=== PATIENT | male | born 1955 | race Caucasian/White ===

== ENCOUNTER 2018-06-29 19:18 | Observation (INO) ==
[2018-06-29 19:49] LABS: BASO# 0.05 X1000 (0.0-0.2); BASO% 0.5 % (0.0-0.8); EOS# 0.34 X1000 (0.0-0.7); EOS% 3.1 % (0.0-10.0); HEMATOCRIT 48.2 % (42.0-52.0); HEMOGLOBIN 16.5 g/dL (14.0-18.0); IMM GRAN# 0.05 X1000 (0.0-0.04); IMM GRAN% 0.5 % (0.0-0.5); LYMPH# 2.39 X1000 (1.2-3.4); LYMPH% 22.1 % (20.5-51.1); MCH 31.3 PG (27-31); MCHC 34.2 g/dL (33-37); MCV 91.3 FL (81-99); MONO# 0.87 X1000 (0.11-0.59); MPV 10.6 FL (7.4-10.4); NEUT# 7.12 X1000 (1.4-6.5); NEUT% 65.8 % (42.2-75.2); PLT 241 X1000 (130-400); RBC 5.28 XMIL (4.7-6.1); RDW 12.9 % (11.5-14.5); WBC 10.82 X1000 (4.8-10.8)
[2018-06-29 19:58] LABS: INR 0.92; PROTIME 13.1 Seconds (11.0-16.0)
[2018-06-29 19:59] LABS: PTT 30.1 Seconds (22.3-41.8)
[2018-06-29 20:14] LABS: AGAP 12; ALB/GLOB RATIO 1.5; ALBUMIN 4.3 g/dL (3.5-5.0); ALKALINE PHOSPHATASE 66 U/L (32-122); BUN 19 mg/dL (8-22); CALCIUM 8.8 mg/dL (8.8-10.2); CHLORIDE 106 mmol/L (98-107); COSMO 293; CREATININE 0.9 mg/dL (0.7-1.2); ESTIMATED GFR > 60; GLUCOSE 161 mg/dL (70-104); GOT 38 U/L (10-34); GPT 38 U/L (10-44); POTASSIUM 4.1 mmol/L (3.5-5.1); SODIUM 144 mmol/L (136-145); TCO2 26 mmol/L (25-35); TOTAL PROTEIN 7.2 g/dL (6.3-8.3)
[2018-06-29 20:23] LABS: CK PROFILE 430 U/L (24-204)
[2018-06-29 20:39] LABS: CK INDEX 2.7 (0.0-2.5); CK-MB 11.45 ng/mL (0.0-5.0)
--- NOTE | 2018-06-29 20:49 | Diag Imaging Result Doc PS360 ---
EXAM: CHEST-2 VIEWS HISTORY: CP TECHNIQUE: Chest two views COMPARISON: 03/31/2017 FINDINGS: The lungs are well expanded. The heart is not enlarged. The vessels are not distended. There are no infiltrates. No pleural effusions. IMPRESSION: No acute abnormality. Electronically signed by Mehran Beyer 06/29/2018 8:46 PM
--- NOTE | 2018-06-29 20:52 | PROVIDER DOCUMENTATION ---
HPI-Chest Pain - General Chief Complaint: Chest Pain Stated Complaint: CHEST PAIN (IN ONE YEAR AGO) Time Seen by Provider: 06/29/18 20:45 Allergies/Adverse Reactions: Patient Allergies Allergy/AdvReac Type Severity Reaction Status Date / Time No Known Allergies Allergy Verified 06/29/18 20:53 Home Medications: Home Medication List Medication Instructions Recorded Confirmed Last Taken Type Aspirin [Adult Aspirin] 06/29/18 06/29/18 History Atorvastatin Calcium [Lipitor] 06/29/18 06/29/18 History Metoprolol [Lopressor] 06/29/18 06/25/18 History - History of Present Illness-CP Nature of Presenting Problem: 63 YOM PRESENTS WITH C/O CHEST TIGHTNESS W/O ASSOCIATED SYMPTOMS. HE HAD A PREVIOUS IN 14 MONTHS AGO Location: reports: substernal Chest Pain Radiation: reports: no radiation Quality of Pain: reports: pressure Severity in ED: mild Onset/Duration: just prior to arrival Timing: gone now Context/Activities at Onset: reports: none Modifying Factors: improves with: nothing Associated Symptoms: reports: denies symptoms Nitro Today/Relief: no nitro taken today Aspirin Treatment Today: 81 mg x 4 Prior Chest Pain/Cardiac Workup: reports: heart attack. denies: no prior chest pain Similar Symptoms Previously?: Yes Recently Seen Here or By Another Healthcare Provider: No Review of Systems - Adult - REVIEW OF SYSTEMS - ADULT Constitutional: denies: no symptoms reported, see HPI, chills, fever, fatique, night sweats, weight gain, weight loss, other Eyes: reports: no symptoms reported. denies: see HPI, discharge, dry eyes, decr eased vision, blurred vision, double vision, eye pain, redness, other Ears, Nose, Mouth & Throat: reports: no symptoms reported. denies: see HPI, ear discharge, ear pain, hearing loss, tinnitus, epistaxis, sinus problem, nose pain, loose teeth, mouth/dental pain, mouth swelling, hoarseness, throat pain, throat swelling, other Cardiovascular: reports: chest pain. denies: no symptoms reported, see HPI, edema, heart murmur, irregular heart rate, orthopnea, palpitations, poor circulation, PND, syncope, other Respiratory: reports: no symptoms reported. denies: see HPI, chronic cough, cough, dyspnea on exertion, excessive sputum production, hemoptysis, pleurisy, shortness of breath, wheezing, other Gastrointestinal: reports: no symptoms reported. denies: see HPI, abdominal pain, hematemesis, constipation, diarrhea, difficulty swallowing, frequent heartburn, nausea, poor appetite, rectal bleeding, vomiting, other Genitourinary: reports: no symptoms reported. denies: see HPI, dysuria, discharge, frequency, flank pain, frequent UTI's, hematuria, hesitency, incont inence, urinary retention, urgency, other Musculoskeletal: reports: no symptoms reported. denies: see HPI, bone pain, back pain, frequent leg cramps, joint pain, joint swelling, muscle aches, muscle weakness, neck pain, other Integumentary: reports: no symptoms reported. denies: see HPI, hives, hair loss, itching, mole changes, nail changes, rash, skin sores/ulcer, skin thickening, other Neurological: reports: no symptoms reported. denies: see HPI, ataxia, dizziness/vertigo, headache/migraines, loss of balance, numbness, paresthesia, seizure, slurred speech, syncope, tremors, other Psychiatric: reports: no symptoms reported. denies: see HPI, anxiety, anti- depressant use, alcohol/drug dependence, depression, emotional problems, insomnia, panic attacks, suicidal thoughts, other Endocrine: reports: no symptoms reported. denies: see HPI, change in skin pigment, excessive sweating, goiter, cold intolerance, heat intolerance, increased hunger, increased thirst, polyuria, other Hematologic/Lymphatic: reports: no symptoms reported. denies: see HPI, blood clots, easy bruising, low blood count, lymphedema, prolonged bleeding, swollen lymph nodes, transfusions, other Allergic/Immunologic: reports: no symptoms reported. denies: see HPI, allergic reactions, allergic rhinitis, asthma, eczema, food allergy, frequent infections, hay fever, hives, positive PPD, urticaria, other Past History - Adult - PAST MEDICAL HISTORY-ADULT Review of Records: reports: Nursing Assessment Review, Social history reviewed & non-contributory. Major Childhood Illnesses: reports: denies history Cardiovascular: reports: IN Physical Exam-General - PHYSICAL EXAM-ADULT Initial Vital Signs Reviewed: Yes - CONSTITUTIONAL General Appearance: appears well, alert - EYES Eyes: PERRL/EOMI, pink conjunctivae - HEAD, EARS, NOSE, MOUTH & THROAT HENMT: normocephalic/atraumatic, moist mucous membranes, normal ENT inspection - NECK Neck: non-tender, full range of motion - RESPIRATORY Respiratory: chest non-tender, lungs clear, normal breath sounds, no respiratory distress - CARDIOVASCULAR Cardiovascular: normal peripheral pulses, regular rate, rhythm - GASTROINTESTINAL (ABDOMEN) Abdominal Exam: normal bowel sounds, non tender - LYMPHATIC Lymphatic: no adenopathy - MUSCULOSKELETAL Back Exam: normal inspection Extremity: normal range of motion, non-tender - SKIN Integumentary: normal color, normal turgor - NEUROLOGIC Neurologic: grossly normal - PSYCHIATRIC Psych/Mental Status: normal mood/affect, oriented x 3 - HEART Score HEART Score: History: Moderately Suspicious HEART Score: ECG: Normal HEART Score: Age: 45-65 Years HEART Score: Risk Factors for Atherosclerotic Disease: 1 or 2 Risk Factors HEART Score: Troponin: 1-3x Normal Limit Total HEART Score:: 4 Progress - PLAN OF CARE/RESULTS Progress/Plan/Lab Results: Vital Signs - 8 hr 06/29/18 19:25 06/29/18 20:42 06/29/18 20:43 Temperature 98.5 F Pulse Rate 74 66 69 Respiratory Rate 18 28 H 22 Blood Pressure 148/95 185/105 185/105 O2 Sat by Pulse Oximetry 97 97 97 06/29/18 21:00 06/29/18 21:03 06/29/18 21:10 Temperature Pulse Rate 66 64 70 Respiratory Rate 21 20 22 Blood Pressure 159/86 O2 Sat by Pulse Oximetry 95 95 96 06/29/18 21:20 06/29/18 21:30 06/29/18 21:32 Temperature Pulse Rate 60 65 61 Respiratory Rate 21 17 19 Blood Pressure 173/93 O2 Sat by Pulse Oximetry 95 97 98 06/29/18 21:40 06/29/18 21:50 06/29/18 22:00 Temperature Pulse Rate 66 61 63 Respiratory Rate 21 20 20 Blood Pressure O2 Sat by Pulse Oximetry 96 96 97 06/29/18 22:03 06/29/18 22:10 06/29/18 22:20 Temperature Pulse Rate 58 L 58 L 60 Respiratory Rate 25 H 20 20 Blood Pressure 152/85 O2 Sat by Pulse Oximetry 96 94 L 95 06/29/18 22:30 06/29/18 22:33 06/29/18 22:40 Temperature Pulse Rate 60 56 L 59 L Respiratory Rate 18 18 19 Blood Pressure 157/90 O2 Sat by Pulse Oximetry 97 96 96 Laboratory Results - last 24 hr 06/29/18 06/29/18 06/29/18 19:30 19:30 19:30 WBC 10.82 H RBC 5.28 Hgb 16.5 Hct 48.2 MCV 91.3 MCH 31.3 H MCHC 34.2 RDW Std Deviation 12.9 Plt Count 241 MPV 10.6 H Immature Gran % (Auto) 0.5 Neut % (Auto) 65.8 Lymph % (Auto) 22.1 [place] % (Auto) 8.0 Eos % (Auto) 3.1 Baso % (Auto) 0.5 Immature Gran # (Auto) 0.05 H Neut # (Auto) 7.12 H Lymph # (Auto) 2.39 [place] # (Auto) 0.87 H Eos # (Auto) 0.34 Baso # (Auto) 0.05 PT INR PTT (Actin FS) Sodium 144 Potassium 4.1 Chloride 106 Carbon Dioxide 26 Anion Gap 12 BUN 19 Creatinine 0.9 Estimated GFR/1.73 m2 > 60 BUN/Creatinine Ratio 21 Glucose 161 H Calculated Osmolality 293 Calcium 8.8 Total Bilirubin 0.40 AST 38 H ALT 38 Alkaline Phosphatase 66 Creatine Kinase 430 H Creatine Kinase Index 2.7 H CK-MB (CK-2) 11.45 H Troponin T Sbt-D-Kivvouxjpvr Pept 86 Total Protein 7.2 Albumin 4.3 Globulin 2.9 Albumin/Globulin Ratio 1.5 06/29/18 06/29/18 06/29/18 19:30 19:30 21:45 WBC RBC Hgb Hct MCV MCH MCHC RDW Std Deviation Plt Count MPV Immature Gran % (Auto) Neut % (Auto) Lymph % (Auto) [place] % (Auto) Eos % (Auto) Baso % (Auto) Immature Gran # (Auto) Neut # (Auto) Lymph # (Auto) [place] # (Auto) Eos # (Auto) Baso # (Auto) PT 13.1 INR 0.92 PTT (Actin FS) 30.1 Sodium Potassium Chloride Carbon Dioxide Anion Gap BUN Creatinine Estimated GFR/1.73 m2 BUN/Creatinine Ratio Glucose Calculated Osmolality Calcium Total Bilirubin AST ALT Alkaline Phosphatase Creatine Kinase Creatine Kinase Index CK-MB (CK-2) Troponin T 0.015 0.053 D Kac-A-Ukoujkirvsd Pept Total Protein Albumin Globulin Albumin/Globulin Ratio Orders Category Date Time Status Cardiac Monitoring DIRECTED Care 06/29/18 19:36 Active Oxygen Therapy- ED Nursing DIRECTED Care 06/29/18 19:36 Active Saline Loc NOW Care 06/29/18 19:36 Active CHEST-2 VIEWS [RAD] Stat Exams 06/29/18 19:36 Completed CBC WITH ELECTRONIC DIFF [HEME] Stat Lab 06/29/18 19:30 Completed CK PROFILE [SP CHEM] Stat Lab 06/29/18 19:30 Completed COMPREHENSIVE METABOLIC PANEL [CHEM] Stat Lab 06/29/18 19:30 Completed PRO B-NATRIURETIC PEPTIDE Stat Lab 06/29/18 19:30 Completed PROTIME WITH INR [COAG] Stat Lab 06/29/18 19:30 Completed PTT [COAG] Stat Lab 06/29/18 19:30 Completed TROPONIN T Stat Lab 06/29/18 19:30 Completed TROPONIN T Stat Lab 06/29/18 21:45 Completed CP/SOB/Palp >45 yrs of Age Stat Oth 06/29/18 19:35 Ordered EKG [EKG] Stat Ther 06/29/18 19:36 Ordered EKG [EKG] Stat Ther 06/29/18 21:24 Ordered Transfer/Admit Order [TRANSFER] Routine Transfer 06/29/18 23:11 Ordered Result Diagrams: 06/29/18 19:30 06/29/18 19:30 - EKG 1 Time of EKG reading by physician:: 19:26 EKG Read and Signed by:: Ravi Bran EKG Interpretation (*Must complete 3 of following elements*): Normal Rate: 77 Rhythm: NDR [place]: normal QRS: normal CT Interval: normal ST Wave: normal 2 Time of EKG reading by physician:: 21:40 EKG Read and Signed by:: Ravi Bran EKG Interpretation (*Must complete 3 of following elements*): Normal Rate: 63 Rhythm: NSR [place]: normal QRS: normal ST Wave: normal Prior EKG Comparison: unchanged from prior Departure - Departure Date of Disposition Decision: 06/29/18 Time of Disposition Decision: 22:38 DIAGNOSIS: NSTEMI (non-ST elevated myocardial infarction) Disposition: ADMITTED INPATIENT 09 Certified Medical Emergency: Emergent Condition: Stable Referrals and Follow-Ups: Jamir Polanco [Primary Care Provider] - - Critical Care Note This patient required my direct & personal management of CC.: No Attestation - Physician/ FIORDALIZA Attestation Patient care was provided by Advanced Practice Provider:: Yes Advanced Practice Provider:: Tatum Timmons Advanced Practice Provider documentation review:: The Mid-level provider doc umentation, treatment plan and medical decision making was reviewed by the physician who agrees with all treatment and medical decision making by the MLP. The physician spent face to face time with patient:: No Advanced Practice Provider documentation review:: Supervising physician onsite and consulted in the evaluation and care of this patient. The physician did not have a face to face encounter with the patient.
[2018-06-30] MEDS ORDERED: ZOFRAN IV PRN (01:24)
[2018-06-30] MEDS ORDERED: TYLENOL PO PRN (01:32)
[2018-06-30 04:15] LABS: BASO# 0.06 X1000 (0.0-0.2); BASO% 0.8 % (0.0-0.8); EOS# 0.49 X1000 (0.0-0.7); EOS% 6.8 % (0.0-10.0); HEMATOCRIT 44.8 % (42.0-52.0); HEMOGLOBIN 15.5 g/dL (14.0-18.0); IMM GRAN# 0.06 X1000 (0.0-0.04); IMM GRAN% 0.8 % (0.0-0.5); LYMPH# 2.25 X1000 (1.2-3.4); LYMPH% 31.3 % (20.5-51.1); MCH 32.1 PG (27-31); MCHC 34.6 g/dL (33-37); MCV 92.8 FL (81-99); MONO# 0.93 X1000 (0.11-0.59); MONO% 12.9 % (1.7-9.3); MPV 10.8 FL (7.4-10.4); NEUT% 47.4 % (42.2-75.2); PLT 193 X1000 (130-400); RBC 4.83 XMIL (4.7-6.1); RDW 13.3 % (11.5-14.5); WBC 7.19 X1000 (4.8-10.8)
--- NOTE | 2018-06-30 04:24 | HISTORY AND PHYSICAL ---
PRIMARY CARE PROVIDER: Patient's does not have a primary care provider. PULPIT OPERATOR: Dr. Jamir Polanco at the [facility] [place]. CHIEF COMPLAINT: Chest pain. HISTORY OF PRESENT ILLNESS: Mr. Cross is a 63-year-old male with a past medical history most notable for coronary artery disease with a myocardial infarction in March of 2017 for which he did have 2 stents placed. He does have a history of hyperlipidemia as well. The patient reports that at approximately 6:30 in the evening on 06/29/2018 right after eating supper he did have start having chest pain across the top of his chest. This was in his left and right chest, but other than this it was nonradiating. He reports that the pain was 7/10 and was crampy and tight in nature. He did state that it was intermittent. It would last a couple minutes to several minutes and then stop and then come back. The patient states this pain started while he was sitting on the couch. The patient states that he ate dinner, was sitting on the couch, had fell asleep and woke up and started having this chest pain. He denies any dizziness, near syncope, shortness of breath, nausea, vomiting or diaphoresis. The patient states it occasionally almost did feel like he had gas and he needed to burp, but denied it feeling like heartburn. He did state this pain was similar to the pain that he had when he had his myocardial infarction. He also reports that for a few months now that he has been having occasional pain in his right lower chest along the rib cage border that he states is difficult to describe but did say it felt like a dull ache at times. He reports that it is intermittent. It usually comes on when he is at rest. Other than this, the patient denies any other symptoms. He denies any recent illness or not feeling well. He denies any headache, abdominal pain, diarrhea. He denies any hematochezia or melena. He denies any dysuria. He denies any pain, numbness, tingling or swelling in extremities. The patient did have a recent tooth extraction on his left upper side though he states that since that time he has not had any pain, swelling, drainage or abscess noted to this area. He denies any fever, body aches, or chills. Upon evaluation in the ER, the patient's initial cardiac enzymes, his CK enzymes were elevated. CK was 430, CK index was 2.7, CK-MB was 11.45. His troponin initially was 0.015. On a repeat 2 hour check had increased to 0.053 though the patient at this time since his arrival to the ER has denied any further episodes of chest pain. His EKG did not show any acute changes. It showed normal sinus rhythm at a rate of 63. The patient did take four 81 mg aspirins prior to arrival. Chest x-ray showed no acute abnormality though given the patient's history and that he did have an increase in his troponin level he will be admitted for further treatment and evaluation for his chest pain to rule out acute coronary syndrome. REVIEW OF SYSTEMS: A 14 point review of systems was conducted with the patient and all were negative except for pertinent positives mentioned in above HPI. PAST MEDICAL HISTORY: 1. Coronary artery disease, status post myocardial infarction in March of 2017 with 2 stents being placed. 2. Hyperlipidemia. 3. Nicotine dependence. PAST SURGICAL HISTORY: 1. Cardiac stent placement x2. 2. Low back surgery in 2004. 3. Recent tooth extraction last week. SOCIAL HISTORY: The patient states that he has smoked now for total of 7 years. He smokes about half a pack to 1 pack per day. The patient reports that he did quit approximately 4 to 5 months prior to having his heart attack in 2018 though unfortunately a few months ago he did start back smoking. There is no known alcohol or illicit drug use. The patient is employed by [employer]. He does maintenance plumbing work. He reports that his job can be strenuous at times depending on the task that they are working on. FAMILY HISTORY: Positive for his mother having a history of hyperlipidemia and hypertension. She is still living. His father did pass away at age 88 of an unknown cause though he did have a history of diabetes mellitus. ALLERGIES: Patient has no known allergies. HOME MEDICATIONS: 1. Aspirin 81 mg p.o. daily. 2. Lipitor 80 mg p.o. at bedtime. 3. Famotidine 20 mg p.o. p.r.n. for indigestion and heartburn. 4. Metoprolol succinate extended release 25 mg p.o. daily. DIAGNOSTIC DATA: White blood cell count is 10.82, hemoglobin 16.5, hematocrit 48.2, platelet count is 241,000. PT 13.1, INR 0.92, PTT is 30.1. Sodium 144, potassium 4.1, chloride 106, serum bicarbonate was 26, BUN 19, creatinine 0.9, glucose 161, calcium 8.8. Liver function tests were within normal limits except for AST was slightly elevated at 38. CK 430, CK index 2.7, CK MB 11.45. Troponin initial draw was 0.015 with a repeat of 0.053. ProBNP was 86. EKG showed normal sinus rhythm at a rate of 63 with a QTc of 403. Chest x-ray showed no acute abnormality. PHYSICAL EXAMINATION: VITAL SIGNS: Temperature 98.3 degrees, heart rate 61, respirations 14, blood pressure 149/84, oxygen saturation is 99% on room air. GENERAL: Mr. Cross is a very pleasant 63-year-old male who is resting in the inpatient bed. He was in no acute distress. He was awake, alert, and able to answer questions appropriately. HEENT: Head is atraumatic, normocephalic. Pupils are equal, round, reactive to light, were 3 mm bilaterally and brisk. Oral mucosa is moist. Oropharynx was clear. NECK: Supple. Trachea midline. CARDIOVASCULAR: Patient has S1-S2 present. No murmurs, gallops, rubs appreciated with a regular rate and rhythm. PULMONARY: Patient has symmetrical chest expansion bilaterally. Lung sounds are clear to auscultation in bilateral full rosas. ABDOMEN: Soft. Nontender. Does not appear to be distended though the patient does have a protuberant abdomen noted. There was no CVA tenderness noted either. There was a negative Ken's sign. Bowel sounds are present in all 4 quadrants, were normoactive. EXTREMITIES: No cyanosis or edema noted. Pulse, motor, and sensory were intact in all extremities. Radial pulses and pedal pulses were 2+ bilaterally. INTEGUMENTARY: The patient's skin is pink, warm, and dry. NEUROLOGICAL: Patient is alert and oriented to person, place, time, and situation. He is able to move all extremities. There do not appear to be any focal neurological deficits noted. ASSESSMENT AND PLAN: 1. Chest pain, rule out acute coronary syndrome. For further evaluation, we will continue with the series of cardiac enzymes. We have placed orders for a lipid profile in the morning as well. He will have a repeat EKG and echocardiogram. Until he is evaluated by Cardiology, we will keep him NPO. He will be placed in [facility] for close monitoring. He will have continuous cardiac telemetry and frequent vital signs. He did receive an aspirin as mentioned prior to arrival. We will continue with 325 mg aspirin daily at this time. We will continue his regularly prescribed metoprolol and Lipitor. We will continue to follow. 2. Coronary artery disease, status post myocardial infarction with stent placement x2 in March of 2017. We will continue with treatment as mentioned above under #1. 3. Hyperlipidemia. We will continue his Lipitor. 4. Nicotine dependence. We did auto club travel counselor the patient on the importance of smoking cessation given his cardiac history for several minutes. We will continue to auto club travel counselor him on this throughout his admission and upon discharge. He declined nicotine patch at this time. 5. Deep venous thrombosis prophylaxis will be provided with Lovenox 40 mg subcutaneous daily. He has been placed in CIC with telemetry. We will do strict intake and output, incentive spirometry. We will repeat a CBC, CMP, magnesium in the morning. We have also placed an order for a hemoglobin A1c. His glucose was elevated at 161. Further orders and recommendations pending hospital course, diagnostic studies, and physician evaluation. Dictated by TAYLOR Dong for Rogelio Manzanares MD cc: Rogelio Manzanares MD
[2018-06-30 04:51] LABS: AGAP 10; BUN 19 mg/dL (8-22); CALCIUM 8.6 mg/dL (8.8-10.2); CHLORIDE 110 mmol/L (98-107); COSMO 286; CREATININE 0.9 mg/dL (0.7-1.2); ESTIMATED GFR > 60; GLUCOSE 101 mg/dL (70-104); MAGNESIUM 1.9 mg/dL (1.5-2.7); POTASSIUM 4.6 mmol/L (3.5-5.1); SODIUM 142 mmol/L (136-145); TCO2 22 mmol/L (25-35)
[2018-06-30 05:13] LABS: CK INDEX 3.3 (0.0-2.5); CK-MB 11.38 ng/mL (0.0-5.0)
[2018-06-30 05:53] LABS: HEMOGLOBIN A1C 5.6 % (4.8-6.0)
[2018-06-30] MEDS ORDERED: LOVENOX SUBQ SCH (06:00)
[2018-06-30] MEDS: ASPIRIN PO SCH (08:21)
[2018-06-30] MEDS ORDERED: TOPROL XL PO SCH (09:00)
[2018-06-30] MEDS ORDERED: LOPRESSOR PO SCH (09:00)
[2018-06-30 12:05] LABS: CK INDEX 3.1 (0.0-2.5); CK-MB 9.91 ng/mL (0.0-5.0)
--- NOTE | 2018-06-30 12:32 | CARDIOLOGY CONSULTATION ---
DATE: 06/30/2018 DIAGNOSIS: Non Q-wave myocardial infarction. SUBJECTIVE: Mr. Cross is a 63-year-old gentleman with known history of coronary artery disease, stent placement to the left anterior descending artery at [facility], who comes with complaints of having chest discomfort, which he says was cramping in sensation, 7/10, tightness which was intermittent. In the last few weeks, he has been having recurrent episodes of chest pain with increasing fatigue. As far as history is concerned, he says he has been having, for at least a few months, chest pain, more so on the right retrosternal region radiating to the back. This has been going on intermittently with exertion. There are no palpitations. There is no dizziness or syncope. He has noticed increasing fatigue as well. There are no palpitations. REVIEW OF SYSTEMS: A 14-point review of systems was done. GI: There is no history of nausea, vomiting, diarrhea. There is no history of hematemesis or melena. Central Nervous System: No focal weakness to suggest a CVA or TIA. Genitourinary: There is no dysuria or hematuria. Respiratory: There is no history of cough, expectoration, hemoptysis. There is no history of fevers or chills. PAST MEDICAL HISTORY: 1. Coronary artery disease, PTCA and drug-eluting stent to the left anterior descending artery and diagonal at the bifurcation, treated with balloon angioplasty. 2. Anterior myocardial infarction. This was on 03/31/2017. 3. Nicotine dependence. The patient started smoking again, about 1 pack of cigarettes a day for the last 4 months. 4. Hyperlipidemia. 5. Back surgery in 2004. SOCIAL HISTORY: The patient has started smoking again. He quit 4 months prior and since his heart attack. There is no history of alcohol or illicit drug abuse. FAMILY HISTORY: Positive for mother having a history of hyperlipidemia, hypertension. ALLERGIES: The patient is not known to be allergic to any medications. HOME MEDICATIONS: Include: 1. Aspirin 81 mg a day. 2. Lipitor 80. 3. Famotidine. 4. Metoprolol 25. PHYSICAL EXAMINATION: Vital Signs: Blood pressure 140/80. Cardiovascular: Normal jugular venous pressure. There is no thyromegaly. No carotid bruit. First and second heart sounds were heard. There is a faint systolic murmur. Respiratory: Normal air entry. There is no crepitations or rhonchi. Abdomen: Soft, nontender. There was no guarding or rigidity. Bowel sounds were heard. Central Nervous System: Alert and was moving all 4 extremities. Extremities: No pedal edema. HEENT: Atraumatic, normocephalic. Pupils were equal and reacting to light. LABORATORY AND DIAGNOSTIC DATA: WBC 7.1, hemoglobin 15.5, hematocrit 44, platelet count of 193,000. Chemistry: Sodium 142, potassium 4.6, BUN 19, creatinine 0.9. HDL 33, LDL cholesterol 75, triglycerides 64. CK-MB was abnormal at 11.45 with CK of 430. Subsequent CK 340, CK-MB 11.38. Troponins were negative. Electrocardiogram revealed normal sinus rhythm, early repolarization pattern noted in the inferior leads, with Q-wave in lead 3. ASSESSMENT AND PLAN: Mr. Leighton Cross is a 63-year-old gentleman with history of myocardial infarction, percutaneous transluminal coronary angioplasty, drug-eluting stent to the left anterior descending artery, and angioplasty to the diagonal on 03/31/2017, history of smoking, gastroesophageal reflux disease. He comes in with complaints of having recurrent chest discomfort. The patient's troponin was negative. Abnormal CK-MB. The patient has non Q-wave myocardial infarction. Given this, I have recommended that he undergo left heart catheterization. Risks, benefits, and alternatives were explained. 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 The patient would like to have the procedure done at [facility]. We will transfer him in the morning. Will get an echocardiogram to assess cardiac and valvular function. I will add Lovenox to his medical regimen, in addition to nitroglycerin paste, and increase his beta-blockers to 25 mg twice daily. We will continue with his aspirin and atorvastatin. Thank you for the consult. cc: Maxx Tolentino MD
[2018-06-30] MEDS ORDERED: LOVENOX SUBQ ONE (13:40)
[2018-06-30] MEDS: NITROGLYCERIN TOP SCH ×2 (14:18→19:46)
--- NOTE | 2018-06-30 14:41 | PROGRESS NOTE ---
DATE: 06/30/2018 INTERVAL HISTORY: Mr. Cross was admitted overnight for chest pain affecting bilateral upper chest of about 10 hours duration. He has had these episodes multiple times in the last week. He was admitted for further management considering his prior history of coronary artery disease and CO in 2018. SUBJECTIVE: At the time of my evaluation, the patient states that he has been chest pain-free since 6 a.m. today. He denies any shortness of breath, palpitation or her dizziness. The patient's is at bedside. He states that he just quit smoking yesterday. I encouraged him to quit smoking. VITAL SIGNS: Temperature 97.5, pulse 65, respiratory rate 17, blood pressure 150/87, saturating 98% on room air. PHYSICAL EXAMINATION: General: He does not appear in any acute distress. HEENT: Oral cavity is moist. Lungs: Air entry bilaterally equal. No wheeze, rhonchi, crackles. Cardiovascular: S1, S2 normal. No murmur or gallop. Abdomen: Soft, nontender. No lower extremity edema. He does not have any jugular venous distention. LABORATORY: No leukocytosis at the moment. Normal hemoglobin, hematocrit and platelet count. Normal kidney function. He does have a flat trend of creatine kinase which was elevated to begin with and now is going down. His CK-MB was also elevated to 11.45 and it is going down to 9.9 now. His troponin continues to show rising trend from 0.01 on admission to 0.08 at the moment. Microbiology no data. IMAGING: His EKG had detected normal sinus rhythm, though he did have Q-waves in lead 3. ASSESSMENT AND PLAN: 1. Chest pain with prior history of coronary artery disease, requiring stent in March 2017. His current chest pain episodes are concerning in the setting of rising troponin levels and likely in the setting of suspected non ST elevation myocardial infarction. He has been started on therapeutic dose of enoxaparin. I will continue him on aspirin, statin and beta carol. Cardiology is planning possible transfer to [facility] for diagnostic coronary angiogram tomorrow. 2. Nicotine dependence and tobacco abuse. I counseled him about not using tobacco anymore. He agrees. 3. Disposition. [facility] with plan for possible transfer to [facility] tomorrow. cc: MD GREGG Moise
[2018-06-30 16:37] LABS: CK INDEX 2.8 (0.0-2.5); CK-MB 8.87 ng/mL (0.0-5.0)
[2018-06-30] MEDS: LIPITOR PO SCH (21:04)
[2018-06-30] MEDS: LOVENOX SUBQ SCH (21:04)
[2018-06-30] MEDS: LOPRESSOR PO SCH (21:05)
[2018-07-01] MEDS: NITROGLYCERIN TOP SCH ×4 (01:34→21:42)
--- NOTE | 2018-07-01 05:54 | DISCHARGE SUMMARY ---
ADMISSION DATE: 06/29/2018 DISCHARGE DATE: 07/01/2018 DISCHARGE DISPOSITION: To [facility]. DISCHARGE DIAGNOSIS: Likely acute coronary syndrome and non ST elevation myocardial infarction. OTHER DIAGNOSES: 1. History of coronary artery disease status post percutaneous intervention and two stents in March of 2017. 2. Tobacco abuse with active tobacco smoking. CURRENT VITALS: Temperature 97.5 degrees, pulse 65, respiratory rate 17, blood pressure 150/87, saturating 98% on room air. These were noted at 12:00 noon on June 30. CURRENT PHYSICAL EXAMINATION: General: The patient does not appear in any acute distress. HEENT: Oral cavity is moist. Lungs: Air entry is bilaterally equal. No wheezes, rhonchi or crackles. Cardiac: S1, S2 normal. No murmur or gallop. Abdomen: Soft, nontender. No hepatojugular reflex. Extremities: No lower extremity edema. Neurologic: The patient is alert and oriented x3. LABORATORY STUDIES: Significant labs during hospital admission and discharge: WBC 7.1, hemoglobin 15.5, platelet count of 193,000, potassium 4.6, magnesium 1.9, BUN 19, and creatinine 0.9. Troponin on admission was 0.01, which had increased to 0.08 within next 12 hours. EKG: Normal sinus rhythm with Q-waves in lead III. DISCHARGE MEDICATIONS: The patient is on atorvastatin 80 mg at nighttime, acetaminophen 650 mg p.o. q.6 hours as needed for chest pain, aspirin 325 mg p.o. daily, enoxaparin 120 mg subcu b.i.d., metoprolol 25 mg b.i.d., nitroglycerin 1 inch topical every 6 hours as needed for chest pain, ondansetron 4 mg IV q.4 hours p.r.n. for nausea and vomiting. HOSPITAL COURSE SUMMARY: Mr. Cross is a 63-year-old male with a past medical history of coronary artery disease requiring a stent in March of 2018, who came in with a chief complaint of chest pain. The patient reported that at about 6:30 p.m. on 06/29/2018, after eating supper, he started having chest pain across the top of his chest, involving both his left and right chest without any radiation. It was a 7 on 10 intensity, crampy and tight in nature. It lasted for a couple of minutes to several minutes, went away spontaneously, and then came back again. This happened while he was sitting on the couch after dinner. He slept on the couch that night, and when he woke up he started having chest pain again. It was not associated with dizziness, shortness of breath, nausea, vomiting, or diaphoresis. He did not have any dyspepsia symptoms. He felt like the chest pain was similar to the chest pain he had when he had a myocardial infarction in March of 2017. He has had this kind of chest pain episodes for a few months now, although the previous episodes were affecting his ribcage area. Considering his pain did not go away, he decided to come to the emergency room. In the emergency room, his vitals were unremarkable. EKG did show any ST-T changes concerning for ischemia. However, his initial troponin was 0.01. He was admitted to the telemetry unit for further monitoring. During his hospitalization, his troponin started showing a rising trend and had increased to 0.087 from 0.01 on admission within 12 hours. Although he was chest pain free, considering his previous coronary artery disease, this was concerning and Cardiology was consulted, who recommended continuing therapy with aspirin, statin, beta blockers, and a therapeutic dose of Enoxaparin and transfer to [facility]. TIME: More than 30 minutes was spent in discharging this patient. The plan of care was discussed with the patient and his at bedside. He was encouraged to quit smoking. cc: Roverto Gonzalez MD ADDENDUM ON 07/02/18: Patient was transferred to [facility] overnight (07/01/18-07/02/18) and I could not see him. GREGG
--- NOTE | 2018-07-01 07:35 | EKG Report ---
Test Performed on : 06/30/2018 06:00:27 AM Test Reason : Chest Pain Blood Pressure : / mmHG Vent. Rate : 060 BPM Atrial Rate : 060 BPM P-R Int : 176 ms QRS Dur : 102 ms QT Int : 400 ms P-R-T Axes : 040 035 062 degrees QTc Int : 400 ms Normal sinus rhythm. Normal ECG When compared with ECG of 29-JUN-2018 21:40, (Unconfirmed) No significant change was found Confirmed by Cullen MACK, Som Szymanski ([id number]) on 07/01/2018 7:58:57 AM
[2018-07-01] MEDS: ASPIRIN PO SCH (08:26)
[2018-07-01] MEDS: LOPRESSOR PO SCH ×2 (08:26→21:42)
[2018-07-01] MEDS: LOVENOX SUBQ SCH ×2 (08:26→21:42)
--- NOTE | 2018-07-01 08:27 | EKG Report ---
Test Performed on : 06/29/2018 9:40:59 PM Test Reason : CP Blood Pressure : / mmHG Vent. Rate : 063 BPM Atrial Rate : 063 BPM P-R Int : 172 ms QRS Dur : 092 ms QT Int : 394 ms P-R-T Axes : 051 042 079 degrees QTc Int : 403 ms Normal sinus rhythm. Normal ECG When compared with ECG of 29-JUN-2018 19:26, (Unconfirmed) No significant change was found Unconfirmed Result
--- NOTE | 2018-07-01 08:49 | EKG Report ---
Test Performed on : 06/29/2018 7:26:50 PM Test Reason : CHEST PAIN Blood Pressure : / mmHG Vent. Rate : 077 BPM Atrial Rate : 077 BPM P-R Int : 170 ms QRS Dur : 100 ms QT Int : 366 ms P-R-T Axes : 034 032 081 degrees QTc Int : 414 ms Normal sinus rhythm. Normal ECG When compared with ECG of 31-MAR-2017 04:58, No significant change was found Unconfirmed Result
--- NOTE | 2018-07-01 10:46 | PROGRESS NOTE ---
DATE: 07/01/2018 ADDENDUM: Overnight patient did not have any acute events. When he got up, he did feel a little dizzy. However, it went away on its own. Currently denying. He had has not had any more chest pain or shortness of breath episodes. Denies any diaphoresis. We discussed about his exam findings, medication management and possible transfer to [place]. VITAL SIGNS: I answered all of his questions. Patient's is also at bedside. Temperature 98.5 degrees, pulse 53, respiratory rate 16, blood pressure 150/84 saturating 100% on room air. PHYSICAL EXAMINATION: Does not appear in any acute distress. Oral cavity is moist. Respiratory: No wheeze or crackle. Cardiovascular: S1, S2 normal. No murmur or gallop. Abdomen: Soft, nontender. Extremities: No lower extremity edema. No jugular venous distention. IMAGING: He is alert oriented x3. The echocardiogram results are pending. No new labs today. ASSESSMENT AND PLAN: 1. Chest pain with history of coronary artery disease requiring stent in March,. His current chest pain episodes were concerning for non-ST elevation myocardial infarction considering rising troponin trend. He has been started on enoxaparin therapeutic dose. I will continue aspirin statin, beta carol, possible transfer to [facility] today is pending. Echocardiogram results also pending. 2. Nicotine dependence and tobacco abuse. I counseled him about stopping tobacco. He agreed. DISPOSITION: 1. He is in [facility] pending transfer to [facility] plan of care discussed with the patient and his at bedside. cc: Roverto oGnzalez MD
--- NOTE | 2018-07-01 14:29 | ECHO REPORT ---
ORDER DATE: 06/30/2018 INTERPRETING PHYSICIAN: Dr. Maxx Tolentino. ECHOCARDIOGRAPHIC MEASUREMENTS: 1. Interventricular septum 1.0 cm. 2. Left ventricular posterior wall 1.0 cm. 3. Diastolic diameter 5.9 cm. 4. Left atrium 3.9 cm. 5. Aorta 3.5 cm. SUMMARY OF THE 2-DIMENSIONAL IMAGIN. Aortic valve leaflets are trileaflet. 2. Pulmonic valve was normal. 3. Mitral valve was normal. 4. Tricuspid valve was normal. 5. There is trace to mild pulmonary regurgitation. 6. Normal left ventricular cavity size. 7. Borderline left ventricular hypertrophy. 8. Estimated ejection fraction of 55%. 9. There is apical hypokinesis. 10. There is diastolic dysfunction. 11. There is mild mitral regurgitation. 12. There is left atrial enlargement. 13. There is no pericardial effusion. cc: Maxx Tolentino MD
[2018-07-01 20:10] VITALS: BP 138/65
[2018-07-01] MEDS: LIPITOR PO SCH (21:16)
== END 2018-07-01 21:44 | disposition short-term general hospital (02) ==
LOC: ED 19:18 → INTOOBSV 23:34 → SUATTDRO 23:34 → ICU 23:34 → 3S 06-30 00:20
PROVIDERS: ATTEND Internal Medicine
CPT/HCPCS: 71020; 71046; 80048; 80053; 80061; 82550; 82553; 83036; 83721; 83735; 83880; 84484; 85025; 85610; 85730; 93005; 93010; 93306; 94761; 94799; 99285; A9270; J1650